=== PATIENT | male | born 1995 | race Caucasian/White ===

== ENCOUNTER 2021-04-26 10:48 | Emergency (ER) | payer MEDICAID ==
[~2021-04-26] VITALS: Ht 165.1 cm; Wt 72.6 kg
[2021-04-26 10:55] VITALS: BP_SYST 141
[2021-04-26] MEDS ORDERED: LIDOCAINE 1% 10 MG/ML, 20 ML MDV INJ ONE (11:15)
[2021-04-26] MEDS ORDERED: BACITRACIN 1 GM OINT TP ONE (11:45)
[2021-04-26 11:55] VITALS: BP_SYST 141
== END 2021-04-26 11:55 | disposition home or self-care (01) ==
LOC: SED 10:48
DX: S51.812A Laceration without foreign body of left forearm, initial encounter (principal); W29.3XXA Contact with powered garden and outdoor hand tools and machinery, initial encounter; Y93.89 Activity, other specified; Y92.89 Other specified places as the place of occurrence of the external cause; Y99.8 Other external cause status
CPT/HCPCS: 12034; 99284; J2001

== ENCOUNTER 2021-05-07 15:42 | Emergency (ER) | payer MEDICAID ==
[~2021-05-07] VITALS: Ht 165.1 cm; Wt 72.6 kg
[2021-05-07 16:16] VITALS: BP_SYST 134
[2021-05-07 16:44] VITALS: BP_SYST 110
== END 2021-05-07 16:44 | disposition home or self-care (01) ==
LOC: SED 15:42
DX: S51.012D Laceration without foreign body of left elbow, subsequent encounter (principal); Z48.02 Encounter for removal of sutures; W45.8XXD Other foreign body or object entering through skin, subsequent encounter
CPT/HCPCS: 99281